=== PATIENT | male | born 1955 | race Caucasian/White ===

== ENCOUNTER → 2017-06-29 | Outpatient (CLI) | payer BC ==
[~2017-06-29] MED LIST: ASPIRIN81 M2 PO; BENADRYL25 MG PO; BENTYL10 MG PO; BENTYL20 MG PO; BUSPAR PO; BUSPAR15 M2 PO; BUSPIRONE HCL7.5 MG PO; CIPRO PO; CLARITIN10 MG PO; COREG PO; COREG12.5 MG PO; ECOTRIN81 M1 PO; EFFEXOR PO; EFFEXOR XR PO; EFFEXOR-XR75 MG PO; GABAPENTIN300 M2 PO; GEODAN PO; GEODON20 MG PO; HYDROXYZINE HCL25 M1 PO; LAMICTAL PO; LEVAQUIN750 MG PO; LIPITOR PO; LIPITOR40 MG PO; LISINOPRIL10 MG PO; MILK OF MAGNESIA PO; NORCO 5/325 TAB1 TAB PO; PERCOCET 5-3251 TAB PO; PERCOCET5/325 PO; PHENERGAN PO; PHENERGAN25 M1 PO; PLAVIX PO; PREDNISONE PO; PRINIVIL PO; PRINIVIL10 MG PO; PRINIVIL20 M1 PO; TOPROL XL; TYLENOL325 M1 PO; ZOFRAN ODT4 MG PO; ZYRTEC10 M2 PO
--- NOTE | ~2017-06-29 | MR17 ---
[facility] A Service of [facility] RADIOLOGY TEXT RESULTS PATIENT: ALLA FONTANEZ LOCATION: [facility] : 51 UNIT #: [id number] AGE: [address]: Cuba Caballero MD SEX: M ORDER DR: [id number] [place] [id number] O MR#: [id number] Acc #: [id number] NAME: ALLA FONTANEZ : 1955 SEX: M STUDY DATE/TIME: 06/29/2017 13:58 UNIT: [facility] ROOM: STUDY DESCRIPTION: MR Brain WWo Contrast Attending Physician: Cuba Caballero M.D. Referring Physician: Cuba Caballero M.D. Ordering Physician: Cuba Caballero M.D. Primary Care Physician: Rick Briceño M.D. MRI CENTER REPORT This report is preliminary unless electronic signature is present. EXAM Brain MRI with and without contrast, 06/29/2017 PROCEDURE Routine brain MRI with and without contrast. COMPARISON None CLINICAL HISTORY Anaplastic large cell lymphoma. 2-3 week history of increasing dizziness and unsteady/staggering gait. FINDINGS There is no MR evidence of acute ischemia or other restricted diffusion. There is no hemorrhage or hydrocephalus or extraaxial fluid collection. There is mild age-appropriate volume loss and minimal nonspecific white matter change. Normal flow voids are seen in the cerebral vessels and the extracranial structures are unremarkable. Bone marrow signal is normal. IMPRESSION Age-appropriate volume loss and nonspecific white matter change. No evidence of acute ischemia, hemorrhage or mass or abnormal enhancement. Dictated by... Dequan Sears M.D. THIS IS AN ELECTRONICALLY VERIFIED REPORT Dequan Sears M.D. at 07/06/2017 4:54 PM JOSEFA/vasyl TD: 07/02/2017 11:05 [facility] A Service of [facility] RADIOLOGY TEXT RESULTS PATIENT: ALLA FONTANEZ LOCATION: [facility] : 51 UNIT #: [id number] AGE: [address]: Cuba Caballero MD SEX: M ORDER DR: ALBERTO #: [id number] MRI CENTER REPORT Page 1 of 1
[2017-06-29 15:25] LABS: POC - CREATININE 1.84 mg/dL (0.64-1.27)
== END | disposition home or self-care (01) ==
LOC: SMRI 13:15
PROVIDERS: Internal Medicine Medical Oncology
DX: C84.7 Anaplastic large cell lymphoma, ALK-negative (principal); L10.0 Pemphigus vulgaris
CPT/HCPCS: 70553; 82565; A9581